=== PATIENT | male | born 1955 | race African-American/Black ===

== ENCOUNTER 2016-10-26 18:56 | Inpatient (IN) | payer OTHER, MEDICAID ==
[~2016-10-26] VITALS: Ht 172.7 cm; Wt 85.7 kg
[~2016-10-26 18:56] MED LIST: ALPOS OU; COLACE100 MG PO; COSOPT OCUMETER10 ML OU; ELIQUIS5 MG PO; FENOFIBRATE160 M1 PO; FINASTERIDE5 M1 PO; FLO4 PO; LIPI20 PO; METFORMIN ER500 M1 PO; NAPROXEN SODIU500 MG PO; NOR10T PO; NORCO1 TA2 PO; TRAVATAN Z5 ML OU
[2016-10-26 20:39] LABS: BASOPHIL % 0.4 % (0-2); PLATELET COUNT 199 x10^3mcL (130-400)
[2016-10-26 20:40] LABS: RED CELL DISTRIBUTION WIDTH 18.1 % (11.5-14.5)
[2016-10-26 20:49] LABS: CALCIUM 8.6 mg/dL (8.5-10.1); CARBON DIOXIDE 22.6 mmol/L (21-32); CREATININE SERUM 1.5 mg/dL (0.7-1.3); POTASSIUM SERUM 3.9 mmol/L (3.5-5.1)
[2016-10-26 20:53] LABS: ALBUMIN 3.4 g/dL (3.4-5.0); BILIRUBIN TOTAL 0.44 mg/dL (0.20-1.00); TOTAL PROTEIN, SERUM 7.1 g/dL (6.4-8.2)
[2016-10-26 22:06] LABS: UA SPECIFIC GRAVITY >=1.030 (1.005-1.035); microscopic required? YES; urine erythrocyte NEGATIVE (NEGATIVE)
[2016-10-26 22:16] LABS: AMPHETAMINE QUAL UR NONE DETECTED (NEG <=1000)
[2016-10-26 22:39] VITALS: BP 114/73
[2016-10-26 22:45] VITALS: Ht 172.7 cm; Wt 85.7 kg
[2016-10-26 23:13] LABS: RED BLOOD CELLS 4.28 M/mm3 (4.52-5.90)
[2016-10-26 23:16] LABS: FREE T4 0.95 ng/dL (0.76-1.46); FREE THYROXINE INDEX 2.6 ug/dL (1.4-4.5); T4(THYROXINE) 7.2 ug/dL (4.7-13.3)
[2016-10-26 23:21] LABS: TOTAL IRON BINDING CAPACITY 410 ug/dL (250-450)
[2016-10-26 23:22] LABS: IRON 31 ug/dL (65-170)
[2016-10-26 23:46] LABS: CHOLESTEROL/HDL RATIO 4.7
[2016-10-27 05:29] VITALS: BP 107/55
[2016-10-27 06:16] LABS: CHLORIDE SERUM 111 mmol/L (98-107); CREATININE SERUM 1.2 mg/dL (0.7-1.3); GFR1 > 60 mL/min; GLUCOSE SERUM 152 mg/dL (74-106); MAGNESIUM 2.1 mg/dL (1.8-2.4); PHOSPHOROUS 3.1 mg/dL (2.5-4.9); POTASSIUM SERUM 5.1 mmol/L (3.5-5.1); SODIUM SERUM 143 mmol/L (136-145)
[2016-10-27 07:16] LABS: BASOPHIL % 0.5 % (0-2); PLATELET COUNT 176 x10^3mcL (130-400)
[2016-10-27 07:21] LABS: RED CELL DISTRIBUTION WIDTH 18.6 % (11.5-14.5)
[2016-10-27 09:36] VITALS: BP 110/61
[2016-10-27 10:40] VITALS: BP 132/71
[2016-10-27 13:19] LABS: T3 TOTAL 1.02 ng/mL
[2016-10-27 13:56] VITALS: BP 112/54
[2016-10-27 16:55] VITALS: BP 110/66
[2016-10-27 21:42] VITALS: BP 102/63
[2016-10-28 06:03] VITALS: BP 104/53
[2016-10-28 06:31] LABS: CALCIUM 8.5 mg/dL (8.5-10.1); CARBON DIOXIDE 24.2 mmol/L (21-32); CHLORIDE SERUM 107 mmol/L (98-107); CREATININE SERUM 1.1 mg/dL (0.7-1.3); GFR1 > 60 mL/min; GLUCOSE SERUM 96 mg/dL (74-106); SODIUM SERUM 140 mmol/L (136-145)
[2016-10-28 06:48] LABS: BASOPHIL % 0.7 % (0-2); PLATELET COUNT 186 x10^3mcL (130-400)
[2016-10-28 06:56] LABS: RED CELL DISTRIBUTION WIDTH 18.6 % (11.5-14.5)
[2016-10-28 06:57] LABS: rbc morphology (normal/abnorm) ABNORMAL (NORMAL)
[2016-10-28 10:07] VITALS: BP 105/67
[2016-10-28 11:15] VITALS: BP 105/67
[2016-10-28 15:04] VITALS: BP 122/64
[2016-10-28 17:45] VITALS: BP 114/69
[2016-10-28 22:03] VITALS: BP 127/73
[2016-10-29 06:14] VITALS: BP 119/68
[2016-10-29 08:43] VITALS: BP 119/68
== END 2016-10-29 10:50 | disposition home or self-care (01) | DRG 205 ==
LOC: ED 18:56 → DU 21:13
PROVIDERS: Emergency Medicine; ADMIT Student in an Organized Health Care Education/Training Program
DX: M94.0 Chondrocostal junction syndrome [Tietze] (principal); N17.0 Acute kidney failure with tubular necrosis; N39.0 Urinary tract infection, site not specified; D68.69 Other thrombophilia; E11.59 Type 2 diabetes mellitus with other circulatory complications; E11.65 Type 2 diabetes mellitus with hyperglycemia; D50.9 Iron deficiency anemia, unspecified; E78.5 Hyperlipidemia, unspecified; Z68.28 Body mass index [BMI] 28.0-28.9, adult; Z79.84 Long term (current) use of oral hypoglycemic drugs
CPT/HCPCS: 82962; 83880; 84439; J0696; J2270; J2916; J7030; Q0092

== ENCOUNTER 2016-12-17 06:43 | Inpatient (IN) | payer OTHER, MEDICAID ==
[~2016-12-17] VITALS: Ht 172.7 cm; Wt 86.6 kg
--- NOTE | 2016-12-17 06:54 | NUR ---
RECEIVED PT FROM TRIAGE FOR C/C OF CHEST PAIN X30 MINS. PT STATES THAT HE HAS A PRESSURE TYPE PAIN IN HIS CHEST THAT RADIATES TO HIS LT ARM. 7/10 PAIN. PT IS A/O X4, SPEECH IS CLEAR AND FOLLOWS COMMANDS. CHEST RISE AND FALL EQUAL AND UNLABORED. PT PLACED ON BOTTOM MAN AND VS STABLE. PT ALSO C/O DIZZINESS AND DIARRHEA. PT HAS A SCAR ON MID STERM FROM PAST SURGERY FOR PE. WILL CONTINUE TO MONITOR.
--- NOTE | 2016-12-17 06:58 | NUR ---
DR MORRISON AT BEDSIDE FOR ASSESSMENT.
--- NOTE | 2016-12-17 07:06 | NUR ---
RECEIVED REPORT FROM [facility], WILL ASSUME CARE PRIMARY NURSE.
--- NOTE | 2016-12-17 07:07 | NUR ---
REPORT GIVEN TO CLAUDY GARCIA AND ELEAZAR. ALL QUESTIONS AND CONCERNS ADDRESSED.
[2016-12-17 07:21] LABS: BASOPHIL % 0.5 % (0-2); PLATELET COUNT 150 x10^3mcL (130-400)
[2016-12-17 07:24] LABS: RED CELL DISTRIBUTION WIDTH 20.7 % (11.5-14.5)
--- NOTE | 2016-12-17 07:37 | NUR ---
PT REPORTS HAVING SHARP CHEST PAIN AT THIS TIME, PAIN LEVEL 8/10. NOTIFIED DR. MORRISON.
[2016-12-17 07:50] LABS: CALCIUM 8.1 mg/dL (8.5-10.1); CARBON DIOXIDE 22.2 mmol/L (21-32); CHLORIDE SERUM 109 mmol/L (98-107); CREATININE SERUM 1.2 mg/dL (0.7-1.3); GFR1 > 60 mL/min; GLUCOSE SERUM 198 mg/dL (74-106); POTASSIUM SERUM 3.7 mmol/L (3.5-5.1); SODIUM SERUM 142 mmol/L (136-145)
[2016-12-17 07:54] LABS: ALKALINE PHOSPHATASE 65 U/L (46-116); ALT/SGPT 47 U/L (16-63); AST/SGOT 30 U/L (15-37); BILIRUBIN TOTAL 0.29 mg/dL (0.20-1.00); TOTAL PROTEIN, SERUM 6.8 g/dL (6.4-8.2)
[2016-12-17 07:55] LABS: ALBUMIN 3.2 g/dL (3.4-5.0)
[2016-12-17 08:31] LABS: rbc morphology (normal/abnorm) ABNORMAL (NORMAL); tear drop cell (dacryocyte) 1+
--- NOTE | 2016-12-17 08:32 | NUR ---
PT RESTING, PT IN NO ACUTE DISTRESS.
--- NOTE | 2016-12-17 09:04 | NUR ---
PT RESTING. PT REPORTS PAIN HAS DECREASED A LITTLE, PAIN LEVEL 7/10.
[2016-12-17 09:37] LABS: MAGNESIUM 2.2 mg/dL (1.8-2.4)
--- NOTE | 2016-12-17 09:48 | NUR ---
PT RESTING, REPORTS A PAIN LEVEL 4/10. PT IN NO ACUTE DISTRESS.
[2016-12-17 09:50] LABS: T3 TOTAL 0.94 ng/mL
--- NOTE | 2016-12-17 10:10 | NUR ---
GAVE REPORT TO [facility] ON TELE UNIT TO ASSUME CARE.
[2016-12-17 10:21] LABS: FREE T4 1.01 ng/dL (0.76-1.46)
[2016-12-17 10:22] LABS: FREE THYROXINE INDEX 2.4 ug/dL (1.4-4.5); T4(THYROXINE) 6.2 ug/dL (4.7-13.3)
--- NOTE | 2016-12-17 10:30 | NUR ---
RECEIVED PT FROM ER BY KEE WITH ER NURSE AT BED SIDE. PT STATED FEELING DIZZINESS AND MILLER 4/10. PT IS ABLE TO WALK WITH STEADY GAIT. PT STATED FEELING SOB WHILE AMBULATING. PT'S VS CHECK: BP 124/73, HR 62 BPM, O2 SAT 99% ON RA. TEMP 97.3. PT BREATHING ON RA, EVEN, UNLABORED. IV ON LW. WILL START IVF PER ORDER.
[2016-12-17 13:38] VITALS: BP 124/73
--- NOTE | 2016-12-17 15:00 | NUR ---
INSERT NEW IV ON RFA, AND RESUME IVF PER ORDER. PT IS RESTING, NO COMPLAIN OF PAIN. WILL CONTINUE TO MONITOR.
[2016-12-17 17:10] VITALS: BP 90/51
--- NOTE | 2016-12-17 18:02 | NUR ---
PT IS RESTING BUT EASILY AROUSABLE. PT NO COMPLAIN OF CHEST PAIN AT THIS TIME. PT BREATHING ON RA, EVEN, UNLABORED. IV SITE PATENT, INTACT. IVF INFUSING WELL.
--- NOTE | 2016-12-17 19:20 | NUR ---
PATIENT RECEIVED AWAKE, ALERT, AND ORIENTED X4. NO DISTRESS NOTED. PATIENT C/O 5/10 CHEST PRESSURE. WILL MEDICATE PER DOCTOR'S PRN ORDER. IV SITE TO RIGHT FOREARM, PATENT AND INTACT. IV FLUID INFUSING PER DOCTOR'S ORDER. BED IN LOWEST POSITION. CALL LIGHT WITHIN REACH. WILL CONTINUE TO MONITOR.
[2016-12-17 21:05] VITALS: BP 109/63
[2016-12-17 22:33] LABS: AMPHETAMINE QUAL UR NONE DETECTED (NEG <=1000)
[2016-12-17 23:15] LABS: UA SPECIFIC GRAVITY 1.025 (1.005-1.035); microscopic required? YES
[2016-12-17 23:16] LABS: urine erythrocyte NEGATIVE (NEGATIVE)
--- NOTE | 2016-12-18 04:59 | NUR ---
PATIENT RESTED THROUGHOUT THE NIGHT. NO DISTRESS NOTED. NO C/O HEADACHE THROUGHOUT THE NIGHT. ALL NEEDS MET. SAFETY AND COMFORT MEASURES MAINTAINED. BED IN LOWEST POSITION. CALL LIGHT WITHIN REACH. WILL CONTINUE TO MONITOR AND ENDORSE TO NEXT SHIFT NURSE.
[2016-12-18 05:27] VITALS: BP 127/62
--- NOTE | 2016-12-18 05:29 | NUR ---
PER PATIENT, PATIENT VOMITS WHEN TAKING NORCO. NOTIFIED DR QUINTANA.
[2016-12-18 05:48] LABS: CALCIUM 8.5 mg/dL (8.5-10.1); CARBON DIOXIDE 23.7 mmol/L (21-32); CHLORIDE SERUM 107 mmol/L (98-107); CREATININE SERUM 1.1 mg/dL (0.7-1.3); GFR1 > 60 mL/min; GLUCOSE SERUM 160 mg/dL (74-106); PHOSPHOROUS 3.6 mg/dL (2.5-4.9); POTASSIUM SERUM 3.7 mmol/L (3.5-5.1); SODIUM SERUM 139 mmol/L (136-145)
[2016-12-18 05:55] LABS: BASOPHIL % 0.4 % (0-2); PLATELET COUNT 147 x10^3mcL (130-400)
--- NOTE | 2016-12-18 08:00 | NUR ---
ALERT/ORIENTED X4; TELE#3= SR; HR = 70; C/O CHEST PAIN. BUT NO S/S OF PAIN. PATIENT WAS PLAYING CELL PHONE. NO RESP DISTRESS ON RA. FINISHED 100% OF BREAKFAST. GOOD APPETITE. AMBULATORY. PATIENT REFUSED IVF. IVHL'D TO RFA. IV PATENT. ON ELIQUIS. REFUSED SCD. PATIENT DEMENDING, NOT CO-OP TO CARE AT TIME. CALL LIGHT IN REACH.
[2016-12-18 08:47] VITALS: BP 129/71
--- NOTE | 2016-12-18 08:55 | NUR ---
DR. RIZZO AND MEDICAL TEAM MADE MORNING ROUND. PLAN OF CARE DISCUSSED WITH PATIENT, INCLUDED WITH SHOPPER INSIGHTS MANAGER, DR. LOPES CONSULTATION. PATIENT AGREED WITH PLAN OF CARE.
--- NOTE | 2016-12-18 12:19 | NUR ---
C/O CHEST PAIN ON 10/21. ASKED MORPHINE 2MG IVP. REFUSED NORCO. HE SAID NORCO MADE HIM NAUSEA. MORPHINE 2MG IVP GIVEN.
[2016-12-18 12:20] VITALS: BP 130/67
--- NOTE | 2016-12-18 14:23 | NUR ---
PATIENT HAS SOUND SLEEPING NOW.
--- NOTE | 2016-12-18 17:10 | NUR ---
PATIENT C/O CHEST PAIN ON 10/21; HE WANTED MORPHINE WITH ANTI-EMESIS MEDS. HE ALSO ASKED SANDWITH TOGETHER. PATIENT DIDN'T HAVE S/S OF CHEST PAIN AND NAUSEA/VOMITING. I ASKED HIM," YOU HAVE FEELING OF HUNGRY, OR FEELING OF NAUSEA?". HE SAID," I WANT ANTI-EMESIS MEDS WITH MORPHINE TO PREVENT NAUSEA". I TOLD HIM, " I WILL HOLD YOUR EXTRA SANWITH TO PREVENT YOUR VOMITING. IF YOU HAVE NAUSEA, I WILL GIVE YOU ZOFRAN AND HOLD YOUR DINNER". 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 MORPHINE 2MG IVP GIVEN PER ORDER. REPORTED TO DION GAN NURSE.
--- NOTE | 2016-12-18 19:36 | NUR ---
RECEIVED PATIENT AWAKE, ALERT AND ORIENTED DENIES CHEST DISCOMFORT THIS TIME. BREATHING EASY AND NONLABORED SATTING AT 100% RA. TELE MONITOR DISCONTINUED TRANFERRED TO MED SURG PATIENT. IV TO RFA INFUSING WELL WITH NO SIGN OF INFIL;TRATION NOTED. WILL CONTINUE TO MONITOR. CALL LIGHT WITHIN REACH.
--- NOTE | 2016-12-18 20:48 | NUR ---
C/O CHESTPAIN MEDICATED WITH MORPHINE 2MG IVP PRESCRIBED. WILL CONTINUE TO MONITOR.
[2016-12-18 21:09] VITALS: BP 112/61
--- NOTE | 2016-12-18 21:10 | NUR ---
PATIENT SUDDENLY WANTED TO CHANGE NURSE WITHOUT ANY REASON AND CALLED WEAVE DEFECT CHARTING CLERK TO REQUEST ANOTHER NURSE.
--- NOTE | 2016-12-18 21:22 | NUR ---
TOOK OVER PT CARE FROM [facility]; PT IS ALERT/ORIENTED X4. PT STATES CP IS DECREASING NOW A 5/10 ON THE PAIN SCALE. PT WAS MEDICATED FOR CP BY [facility] (SEE EMAR). WILL CONTINUE TO MONITOR.
--- NOTE | 2016-12-18 21:53 | NUR ---
PATIENT CARE TRANSFERRED TO [facility], REPORT GIVEN.
--- NOTE | 2016-12-18 22:30 | NUR ---
PT TAKEN OFF TELE MONITOR PER MD ORDER
--- NOTE | 2016-12-18 23:55 | NUR ---
PER DAHIANA HENRY RN, THE BILINGUAL CUSTOMER SERVICE MOHAMUD PHONED AND STATED THE PT CALLED HER AND WAS CONCERNED ABOUT THE TELE MONITOR BEING OFF. PT STATED HE GETS OCCASIONAL PALPATATIONS BUT IS NOT HAVING ANY NOW. PT STATED HE GETS PALPATATIONS "ABOUT 2:00 AM". PT WAS INFORMED THAT HIS LABS WERE WITHIN NORMAL LIMITS. I SPOKE WITH DR QUINTANA AND INFORMED HIM OF THE ABOVE, DR QUINTANA STATED HE WILL COME AND SPEAK TO THE PT. WILL CONTINUE TO MONITOR.
--- NOTE | 2016-12-19 02:30 | NUR ---
PT SLEEPING. NO DISTRESS NOTED. WILL CONTINUE TO MONITOR.
--- NOTE | 2016-12-19 04:10 | NUR ---
PT SLEEPING. NO DISTRESS NOTED. WILL CONTINUE TO MONITOR.
--- NOTE | 2016-12-19 05:01 | NUR ---
PT SLEPT IN LONG INTERVALS THROUGHOUT THE NIGHT. NO DISTRESS NOTED. WILL CONTINUE TO MONITOR.
--- NOTE | 2016-12-19 06:31 | NUR ---
PT REFUSES BLOOD DRAW AND VS AT THIS TIME. DR QUINTANA MADE AWARE THROUGH [place].
--- NOTE | 2016-12-19 07:50 | NUR ---
RECEIVED PATIENT SITTING UP IN BED A/O X4, CLEAR SPEECH, NO NEURO DEFICITS NOTED. MED-SURG PATIENT, C/O PRESSURE LIKE CHEST PAIN /10 TOLERABLE AT THIS TIME. BREATHING EVEN UNLABBORED ON RA, DENIES SOB, NO DISTRESS NOTED. SKIN IS WARM CDI WITH IV H/L TO RFA INTACT AND PATENT. PATIENT CALM AND COOPERATIVE WITH CARE, INSTRUCTED TO CALL FOR ASSISTANCE IF NEEDED. CALL LIGHT WITHIN REACH, BED IN LOW POSITION. WILL MONITOR.
--- NOTE | 2016-12-19 08:26 | NUR ---
PATIENT C/O PRESSURE LIKE CHEST PAIN 10/21, MORPHINE 2 MG IVP Q3H PRN GIVEN AT THIS TIME FOR PAIN PER MD ORDER. ALL NEEDS ATTENDED TO. WILL MONITOR.
[2016-12-19 08:32] LABS: BASOPHIL % 0.4 % (0-2); PLATELET COUNT 169 x10^3mcL (130-400)
[2016-12-19 08:33] LABS: RED CELL DISTRIBUTION WIDTH 20.8 % (11.5-14.5)
--- NOTE | 2016-12-19 09:14 | NUR ---
ROUNDS MADE- DR. RIZZO, RESIDENT TEAM, CHARGE NURSE AND PRIMARY NURSE AT BEDSIDE. POC REVIEWED WITH PATIENT- PATIENT ADDRESSED CONCERNED WITH HX OF IRREGULAR HEARTBEAT. PATIENT WILL STAY ANOTHER NIGHT TO CONTINUE MONITORING PATIENT- WILL PLACE PATIENT ON TELE MONITOR. ALL QUESTIONS AND CONCERNS ADDRESSED. WILL MONITOR.
[2016-12-19 09:49] VITALS: BP 110/71
--- NOTE | 2016-12-19 10:07 | NUR ---
PATIENT PLACED BACK ON TELEMETRY, TELE # 36 APPLIED PER MD ORDER.
[2016-12-19 10:19] LABS: ovalocyte/elliptocyte 1+; rbc morphology (normal/abnorm) ABNORMAL (NORMAL); tear drop cell (dacryocyte) 1+
--- NOTE | 2016-12-19 14:00 | NUR ---
PATIENT RESTING IN BED COMFORTABLY, NO DISTRESS NOTED. SAFETY PRECAUTIONS MAINTAINED. WILL MONITOR.
[2016-12-19 16:03] LABS: SODIUM SERUM 136 mmol/L (136-145)
[2016-12-19 16:19] LABS: CALCIUM 8.9 mg/dL (8.5-10.1); CHLORIDE SERUM 104 mmol/L (98-107); CREATININE SERUM 1.1 mg/dL (0.7-1.3); GFR1 > 60 mL/min
[2016-12-19 16:23] LABS: CARBON DIOXIDE 28.4 mmol/L (21-32); GLUCOSE SERUM 98 mg/dL (74-106)
--- NOTE | 2016-12-19 16:45 | NUR ---
DR. LOPES AT BEDSIDE TO SPEAK WITH PATIENT. PATIENT C/O LEFT SIDED CHEST PAIN (PRESSURE) AND LOWER BACK PAIN 6/, WILL MEDICATE PRN FOR PAIN WITH MORPHINE PER MD ORDER (SEE eMAR).
[2016-12-19 17:24] VITALS: BP 118/64
--- NOTE | 2016-12-19 18:44 | NUR ---
PATIENT RESTING IN BED COMFORTABLY, NO DISTRESS NOTED. PATIENT IS CALM AND COOPERATIVE WITH CARE, PLEASENT PATIENT. IV TO RFA REMAINS H/L INTACT AND PATIENT. ALL NEEDS ATTENDED TO DURING SHIFT. SAFETY PREACUTIONS MAINTAINED. WILL ENDORSE CARE TO ONCOMING NURSE.
--- NOTE | 2016-12-19 19:46 | NUR ---
Awake and verbally responsive. No resp.distress noted on room air. Denies chest pain or any discomfort. Normal sinus rhythm. Will cont.to monitor. Call light within reach.
[2016-12-19 20:50] VITALS: BP 125/70
--- NOTE | 2016-12-20 04:14 | NUR ---
No significant change in condition noted. Afebrile. Denies chest pain or any discomfort. Pain controlled. In no apparent distress.
[2016-12-20 05:50] VITALS: BP 98/52
--- NOTE | 2016-12-20 07:45 | NUR ---
ALERT AND ORIENTED. BREATHNG FREELY ON RA. TELE # 36 NSR. SL TO RT FA. CHEST PAIN 06/21. DENIES NEED FOR PAIN MED. INDEPENDENT W ADL'S. TAKING ELOQUIS FOR HX CAD. NO PROBLEMS COMMUNICATING. BRP. CALL LIGHT WITHIN REACH.
[2016-12-20] MEDS ORDERED: METOPROLOL TART25 M1 PO (09:01)
[2016-12-20] MEDS ORDERED: MAC100 PO (09:01)
[2016-12-20 10:15] VITALS: BP 106/68
--- NOTE | 2016-12-20 10:20 | NUR ---
IV INFILTRATED. HAN'Faith MARTÍNEZ. REMOVED TELE # 36 AND RETURNED TO TELE STATION. PT WILL BE GOING [facility] TODAY.
[2016-12-20] MEDS ORDERED: ELIQUIS5 MG PO (12:11)
[2016-12-20] MEDS ORDERED: METFORMIN ER500 M1 PO (12:12)
[2016-12-20] MEDS ORDERED: DUL5 PO (12:13)
[2016-12-20] MEDS ORDERED: NOR10T PO (12:14)
[2016-12-20 12:18] VITALS: BP 106/68
--- NOTE | 2016-12-20 12:57 | NUR ---
PT TO BE DC'D. WAITING FOR POSSIBLE CAB VOUCHER. F/U SHARON GIVEN WITH PCP IN [place]. RECEIVED RX FOR NORCO. OTHER PRESCRIPTIONS ESCRIPTED TO PTS PHARMACY. ALL DC INSTRUCTIONS REVIEWED WITH AND SIGNED BY PT.
[2016-12-20 13:05] VITALS: BP 118/67
== END 2016-12-20 13:12 | disposition home or self-care (01) | DRG 206 ==
LOC: ED 06:43 → DU 09:43 → MU 12-18 23:11 → DU 12-19 10:08
PROVIDERS: Emergency Medicine; ADMIT Family Medicine
DX: M94.0 Chondrocostal junction syndrome [Tietze] (principal); E44.1 Mild protein-calorie malnutrition; I42.2 Other hypertrophic cardiomyopathy; D68.69 Other thrombophilia; N39.0 Urinary tract infection, site not specified; E11.65 Type 2 diabetes mellitus with hyperglycemia; I25.10 Atherosclerotic heart disease of native coronary artery without angina pectoris; N40.0 Benign prostatic hyperplasia without lower urinary tract symptoms; Z76.5 Malingerer [conscious simulation]; H40.9 Unspecified glaucoma; D64.9 Anemia, unspecified; E78.5 Hyperlipidemia, unspecified; Z68.29 Body mass index [BMI] 29.0-29.9, adult; Z86.711 Personal history of pulmonary embolism; Z79.01 Long term (current) use of anticoagulants
CPT/HCPCS: 82962; 83880; 84439; 85378; J0696; J2270; J2550; J3010; J7030; Q0092

== ENCOUNTER 2017-05-08 18:48 | Inpatient (IN) | payer OTHER, MEDICAID ==
[~2017-05-08] VITALS: Ht 172.7 cm; Wt 90.0 kg
[~2017-05-08 18:48] MED LIST changes: +DUL5 PO; +MAC100 PO; +METOPROLOL TART25 M1 PO
[2017-05-08 19:44] LABS: BASOPHIL % 0.4 % (0-2); PLATELET COUNT 170 x10^3mcL (130-400)
[2017-05-08 19:53] LABS: RED CELL DISTRIBUTION WIDTH 17.4 % (11.5-14.5)
[2017-05-08 20:14] LABS: CALCIUM 9.4 mg/dL (8.5-10.1); CARBON DIOXIDE 26.1 mmol/L (21-32); CHLORIDE SERUM 104 mmol/L (98-107); CREATININE SERUM 1.2 mg/dL (0.7-1.3); GFR1 > 60 mL/min; GLUCOSE SERUM 91 mg/dL (74-106); POTASSIUM SERUM 4.5 mmol/L (3.5-5.1); SODIUM SERUM 140 mmol/L (136-145)
[2017-05-08 20:19] LABS: ALBUMIN 3.9 g/dL (3.4-5.0); ALKALINE PHOSPHATASE 64 U/L (46-116); ALT/SGPT 20 U/L (16-63); AST/SGOT 15 U/L (15-37); BILIRUBIN TOTAL 0.5 mg/dL (0.20-1.00); TOTAL PROTEIN, SERUM 7.6 g/dL (6.4-8.2)
[2017-05-08 21:33] LABS: CHOLESTEROL/HDL RATIO 3.4; MAGNESIUM 2.1 mg/dL (1.8-2.4); PHOSPHOROUS 3.7 mg/dL (2.5-4.9)
[2017-05-08 21:41] LABS: FREE T4 1.23 ng/dL (0.76-1.46); FREE THYROXINE INDEX 2.9 ug/dL (1.4-4.5)
[2017-05-08] MEDS ORDERED: FLO4 PO (21:53)
[2017-05-08 21:59] LABS: microscopic required? YES; urine erythrocyte NEGATIVE (NEGATIVE)
[2017-05-08 22:10] LABS: AMPHETAMINE QUAL UR NONE DETECTED (NEG <=1000)
[2017-05-08 22:44] VITALS: BP 132/69
[2017-05-09 03:54] LABS: BASOPHIL % 0.3 % (0-2); PLATELET COUNT 152 x10^3mcL (130-400)
[2017-05-09 03:58] LABS: RED CELL DISTRIBUTION WIDTH 17.9 % (11.5-14.5)
[2017-05-09 04:21] LABS: CALCIUM 8.3 mg/dL (8.5-10.1); CARBON DIOXIDE 26.1 mmol/L (21-32); CHLORIDE SERUM 106 mmol/L (98-107); CREATININE SERUM 1.1 mg/dL (0.7-1.3); GFR1 > 60 mL/min; GLUCOSE SERUM 159 mg/dL (74-106); MAGNESIUM 2.1 mg/dL (1.8-2.4); PHOSPHOROUS 2.8 mg/dL (2.5-4.9); POTASSIUM SERUM 3.6 mmol/L (3.5-5.1); SODIUM SERUM 140 mmol/L (136-145)
[2017-05-09 06:19] VITALS: BP 132/76
[2017-05-09 09:15] VITALS: BP 110/59
[2017-05-09 13:33] VITALS: BP 120/67
[2017-05-09 17:13] VITALS: BP 125/59
[2017-05-09 19:05] VITALS: Ht 172.7 cm; Wt 90.0 kg
[2017-05-09 20:45] VITALS: BP 99/62
[2017-05-10 05:38] VITALS: BP 103/63
[2017-05-10 07:00] LABS: BASOPHIL % 0.2 % (0-2); PLATELET COUNT 142 x10^3mcL (130-400)
[2017-05-10 07:11] LABS: RED CELL DISTRIBUTION WIDTH 18.3 % (11.5-14.5)
[2017-05-10 07:26] LABS: CALCIUM 9.2 mg/dL (8.5-10.1); CARBON DIOXIDE 23.1 mmol/L (21-32); CHLORIDE SERUM 106 mmol/L (98-107); CREATININE SERUM 1.2 mg/dL (0.7-1.3); GFR1 > 60 mL/min; GLUCOSE SERUM 120 mg/dL (74-106); POTASSIUM SERUM 4.6 mmol/L (3.5-5.1); SODIUM SERUM 141 mmol/L (136-145)
[2017-05-10 08:25] VITALS: BP 114/63
[2017-05-10 12:19] VITALS: BP 133/70
[2017-05-10 16:42] VITALS: BP 118/67
[2017-05-10] MEDS ORDERED: LOT5 PO (16:52)
[2017-05-10] MEDS ORDERED: NIT0.4 SL (17:11)
[2017-05-10 21:07] VITALS: BP 125/73
[2017-05-11 05:21] VITALS: BP 116/70
[2017-05-11 09:42] VITALS: BP 125/73
[2017-05-11 18:14] VITALS: BP 129/88
[2017-05-11 20:10] VITALS: BP 100/69; BP 131/76
[2017-05-12 04:54] VITALS: BP 124/71
[2017-05-12 08:54] VITALS: BP 130/68
[2017-05-12 09:27] VITALS: BP 130/68
[2017-05-12] MEDS ORDERED: NIT0.4 SL (10:03)
[2017-05-12] MEDS ORDERED: ELIQUIS5 MG PO (10:03)
[2017-05-12] MEDS ORDERED: METFORMIN ER500 M1 PO (10:03)
[2017-05-12] MEDS ORDERED: LOT5 PO (10:03)
[2017-05-12 10:07] VITALS: BP 130/68
== END 2017-05-12 10:30 | disposition home or self-care (01) | DRG 206 ==
LOC: ED 18:48 → DU 21:09
PROVIDERS: Family Medicine
DX: M94.0 Chondrocostal junction syndrome [Tietze] (principal); N39.0 Urinary tract infection, site not specified; I11.9 Hypertensive heart disease without heart failure; E11.65 Type 2 diabetes mellitus with hyperglycemia; N40.0 Benign prostatic hyperplasia without lower urinary tract symptoms; H40.9 Unspecified glaucoma; Z68.30 Body mass index [BMI] 30.0-30.9, adult; Z86.711 Personal history of pulmonary embolism; Z95.828 Presence of other vascular implants and grafts; Z79.84 Long term (current) use of oral hypoglycemic drugs; Z79.01 Long term (current) use of anticoagulants
CPT/HCPCS: 82962; 83880; 84439; 94150; J0696; J1885; J2270; J2405; J7030; J7620; Q0092

== ENCOUNTER 2017-08-21 17:44 | Inpatient (IN) | payer OTHER, MEDICAID ==
[~2017-08-21] VITALS: Ht 177.8 cm; Wt 85.0 kg
[~2017-08-21 17:44] MED LIST changes: -ALPOS OU; +LOT5 PO; +NIT0.4 SL
[2017-08-21 17:50] VITALS: Ht 177.8 cm; Wt 85.0 kg
[2017-08-21 18:47] LABS: BASOPHIL % 0.7 % (0-2); PLATELET COUNT 181 x10^3mcL (130-400)
[2017-08-21 18:51] LABS: RED CELL DISTRIBUTION WIDTH 15.5 % (11.5-14.5)
[2017-08-21 18:57] LABS: CALCIUM 8.9 mg/dL (8.5-10.1); CARBON DIOXIDE 25.8 mmol/L (21-32); CHLORIDE SERUM 107 mmol/L (98-107); CREATININE SERUM 1.2 mg/dL (0.7-1.3); GFR1 > 60 mL/min; GLUCOSE SERUM 116 mg/dL (74-106); POTASSIUM SERUM 3.9 mmol/L (3.5-5.1); SODIUM SERUM 141 mmol/L (136-145)
[2017-08-21 19:02] LABS: ALBUMIN 3.5 g/dL (3.4-5.0); ALKALINE PHOSPHATASE 72 U/L (46-116); AST/SGOT 12 U/L (15-37); BILIRUBIN TOTAL 0.35 mg/dL (0.20-1.00); TOTAL PROTEIN, SERUM 6.9 g/dL (6.4-8.2)
[2017-08-21 19:14] LABS: ALT/SGPT 18 U/L (16-63)
[2017-08-21] MEDS ORDERED: FINASTERIDE5 M1 (20:19)
[2017-08-21 20:35] LABS: MAGNESIUM 2.1 mg/dL (1.8-2.4); PHOSPHOROUS 3.7 mg/dL (2.5-4.9)
[2017-08-21 20:36] LABS: CHOLESTEROL/HDL RATIO 4.8
[2017-08-21 20:40] VITALS: BP 126/79
[2017-08-21 20:44] LABS: T3 TOTAL 0.83 ng/mL
[2017-08-21 20:46] LABS: FREE T4 0.91 ng/dL (0.76-1.46); FREE THYROXINE INDEX 2.7 ug/dL (1.4-4.5); T4(THYROXINE) 7.3 ug/dL (4.7-13.3)
[2017-08-21 20:51] LABS: microscopic required? YES; urine erythrocyte NEGATIVE (NEGATIVE)
[2017-08-21 21:03] LABS: AMPHETAMINE QUAL UR NONE DETECTED (NEG <=1000)
[2017-08-22 04:12] LABS: BASOPHIL % 0.4 % (0-2); PLATELET COUNT 174 x10^3mcL (130-400)
[2017-08-22 04:13] LABS: RED CELL DISTRIBUTION WIDTH 15.4 % (11.5-14.5)
[2017-08-22 04:22] LABS: CALCIUM 8.6 mg/dL (8.5-10.1); CHLORIDE SERUM 108 mmol/L (98-107); GFR1 > 60 mL/min; GLUCOSE SERUM 127 mg/dL (74-106); POTASSIUM SERUM 3.9 mmol/L (3.5-5.1); SODIUM SERUM 141 mmol/L (136-145)
[2017-08-22 05:20] VITALS: BP 114/54
[2017-08-22 09:34] VITALS: BP 109/56
[2017-08-22 12:51] VITALS: BP 124/64
[2017-08-22 17:41] VITALS: BP 124/73
[2017-08-22 21:10] VITALS: BP 114/68
[2017-08-23 10:25] VITALS: BP 119/66
[2017-08-23 12:54] VITALS: BP 114/68
[2017-08-23] MEDS ORDERED: LAC PO (13:00)
[2017-08-23] MEDS ORDERED: LEVAQUIN750 MG PO (13:01)
[2017-08-23 15:17] LABS: BASOPHIL % 0.4 % (0-2); PLATELET COUNT 180 x10^3mcL (130-400)
[2017-08-23 15:24] LABS: RED CELL DISTRIBUTION WIDTH 15.7 % (11.5-14.5)
[2017-08-23 15:30] LABS: CALCIUM 8.7 mg/dL (8.5-10.1); CARBON DIOXIDE 25.4 mmol/L (21-32); CHOLESTEROL/HDL RATIO 3.8; CREATININE SERUM 1.3 mg/dL (0.7-1.3); PHOSPHOROUS 3.8 mg/dL (2.5-4.9); POTASSIUM SERUM 4.2 mmol/L (3.5-5.1)
[2017-08-23] MEDS ORDERED: FLO4 PO (16:26)
[2017-08-23] MEDS ORDERED: ALPOS OU (16:26)
[2017-08-23] MEDS ORDERED: ZES5 PO (16:27)
[2017-08-23 17:28] VITALS: BP 124/70
[2017-08-23 21:17] VITALS: BP 110/57
[2017-08-24 06:02] VITALS: BP 103/61
[2017-08-24 08:24] VITALS: BP 116/74
[2017-08-24 17:32] VITALS: BP 120/74
[2017-08-24 20:40] VITALS: BP 119/65
[2017-08-25 05:30] VITALS: BP 116/69
[2017-08-25 08:45] VITALS: BP 123/70
[2017-08-25 10:56] VITALS: BP 123/70
== END 2017-08-25 12:37 | disposition home or self-care (01) | DRG 205 ==
LOC: ED 17:44 → DU 20:01 → MU 20:01 → DU 20:30 → MU 08-23 09:17
PROVIDERS: Emergency Medicine; Family Medicine
DX: M94.0 Chondrocostal junction syndrome [Tietze] (principal); N17.0 Acute kidney failure with tubular necrosis; N39.0 Urinary tract infection, site not specified; E11.9 Type 2 diabetes mellitus without complications; E11.65 Type 2 diabetes mellitus with hyperglycemia; E78.00 Pure hypercholesterolemia, unspecified; N40.0 Benign prostatic hyperplasia without lower urinary tract symptoms; E78.1 Pure hyperglyceridemia; H40.9 Unspecified glaucoma; D64.9 Anemia, unspecified
CPT/HCPCS: 82962; 83880; 84439; J0696; J1885; J2405; J3010; J3490; J7030; Q0092

== ENCOUNTER 2017-10-16 17:09 | Inpatient (IN) | payer OTHER, MEDICAID ==
[~2017-10-16] VITALS: Ht 177.8 cm; Wt 77.6 kg
[~2017-10-16 17:09] MED LIST changes: +ALPOS OU; +FINASTERIDE5 M1; +LAC PO; +LEVAQUIN750 MG PO; +ZES5 PO
[2017-10-16 17:15] VITALS: Ht 177.8 cm; Wt 77.6 kg
[2017-10-16 18:05] LABS: BASOPHIL % 0.6 % (0-2); PLATELET COUNT 176 x10^3mcL (130-400); RED CELL DISTRIBUTION WIDTH 15.9 % (11.5-14.5)
[2017-10-16 18:07] LABS: CARBON DIOXIDE 24.2 mmol/L (21-32); CHLORIDE SERUM 108 mmol/L (98-107); CREATININE SERUM 1.2 mg/dL (0.7-1.3); GFR1 > 60 mL/min; GLUCOSE SERUM 181 mg/dL (74-106); POTASSIUM SERUM 3.6 mmol/L (3.5-5.1); SODIUM SERUM 142 mmol/L (136-145)
[2017-10-16 18:13] LABS: ALBUMIN 3.5 g/dL (3.4-5.0); ALKALINE PHOSPHATASE 63 U/L (46-116); ALT/SGPT 21 U/L (16-63); AST/SGOT 16 U/L (15-37); BILIRUBIN TOTAL 0.33 mg/dL (0.20-1.00)
[2017-10-16 19:45] LABS: CHOLESTEROL/HDL RATIO 3.7; MAGNESIUM 2.2 mg/dL (1.8-2.4); PHOSPHOROUS 3.3 mg/dL (2.5-4.9)
[2017-10-16 19:53] VITALS: BP 137/76
[2017-10-16 19:53] LABS: T3 TOTAL 0.86 ng/mL
[2017-10-16 20:14] LABS: FREE T4 0.93 ng/dL (0.76-1.46); FREE THYROXINE INDEX 1.7 ug/dL (1.4-4.5); T4(THYROXINE) 4.9 ug/dL (4.7-13.3)
[2017-10-17 02:10] VITALS: BP 109/65
[2017-10-17 05:15] VITALS: BP 105/57
[2017-10-17 06:02] LABS: microscopic required? NO
[2017-10-17 06:14] LABS: CALCIUM 8.9 mg/dL (8.5-10.1); CARBON DIOXIDE 25.2 mmol/L (21-32); CHLORIDE SERUM 108 mmol/L (98-107); CREATININE SERUM 1.1 mg/dL (0.7-1.3); GFR1 > 60 mL/min; GLUCOSE SERUM 120 mg/dL (74-106); PHOSPHOROUS 3.6 mg/dL (2.5-4.9); POTASSIUM SERUM 3.6 mmol/L (3.5-5.1); SODIUM SERUM 142 mmol/L (136-145)
[2017-10-17 06:25] LABS: BASOPHIL % 0.5 % (0-2); PLATELET COUNT 176 x10^3mcL (130-400)
[2017-10-17 06:33] LABS: RED CELL DISTRIBUTION WIDTH 15.6 % (11.5-14.5)
[2017-10-17 07:09] LABS: UA SPECIFIC GRAVITY 1.025 (1.005-1.035); urine erythrocyte NEGATIVE (NEGATIVE)
[2017-10-17 07:32] LABS: AMPHETAMINE QUAL UR NONE DETECTED (See below)
[2017-10-17 09:19] VITALS: BP 125/69
[2017-10-17 13:40] VITALS: BP 117/65
[2017-10-17 17:41] VITALS: BP 117/68; BP 145/98
[2017-10-17 20:15] VITALS: BP 111/59
[2017-10-18 06:28] VITALS: BP 107/54
[2017-10-18 07:46] LABS: CALCIUM 8.1 mg/dL (8.5-10.1); CARBON DIOXIDE 24.8 mmol/L (21-32); CHLORIDE SERUM 109 mmol/L (98-107); GFR1 > 60 mL/min; GLUCOSE SERUM 135 mg/dL (74-106); MAGNESIUM 1.8 mg/dL (1.8-2.4); PHOSPHOROUS 3.2 mg/dL (2.5-4.9); POTASSIUM SERUM 4.1 mmol/L (3.5-5.1); SODIUM SERUM 141 mmol/L (136-145)
[2017-10-18 08:11] LABS: BASOPHIL % 0.6 % (0-2); PLATELET COUNT 173 x10^3mcL (130-400)
[2017-10-18 08:12] LABS: RED CELL DISTRIBUTION WIDTH 15.1 % (11.5-14.5)
[2017-10-18 08:13] LABS: rbc morphology (normal/abnorm) ABNORMAL (NORMAL)
[2017-10-18 13:41] VITALS: BP 115/62
[2017-10-18] MEDS ORDERED: ELIQUIS5 MG PO (16:17)
[2017-10-18 21:07] VITALS: BP 121/57
[2017-10-19 05:19] VITALS: BP 134/70
[2017-10-19 14:00] VITALS: BP 117/70
[2017-10-19 20:45] VITALS: BP 124/79
[2017-10-20 06:51] VITALS: BP 114/71
[2017-10-20 08:00] VITALS: BP 99/60
[2017-10-20 13:24] VITALS: BP 139/67
[2017-10-20 16:59] VITALS: BP 129/78
[2017-10-20 20:48] VITALS: BP 111/64
[2017-10-21 04:59] VITALS: BP 105/64
== END 2017-10-21 09:14 | disposition left against medical advice (07) | DRG 310 ==
LOC: ED 17:09 → DU 18:30
PROVIDERS: General Practice
DX: R00.1 Bradycardia, unspecified (principal); I44.1 Atrioventricular block, second degree; E11.65 Type 2 diabetes mellitus with hyperglycemia; E78.5 Hyperlipidemia, unspecified; H40.9 Unspecified glaucoma; Z68.29 Body mass index [BMI] 29.0-29.9, adult; Z86.711 Personal history of pulmonary embolism; Z91.19 Patient's noncompliance with other medical treatment and regimen
CPT/HCPCS: 82962; 83880; 84439; J2270; J2405; J7030; Q0092

== ENCOUNTER 2018-01-17 18:21 | Inpatient (IN) | payer MEDICAID, MEDICARE, OTHER ==
[~2018-01-17] VITALS: Ht 177.8 cm; Wt 89.0 kg
[2018-01-17 18:28] VITALS: Ht 177.8 cm; Wt 89.0 kg
[2018-01-17 20:13] LABS: CALCIUM 8.9 mg/dL (8.5-10.1); CARBON DIOXIDE 26.4 mmol/L (21-32); CHLORIDE SERUM 109 mmol/L (98-107); CREATININE SERUM 1.1 mg/dL (0.7-1.3); GFR1 > 60 mL/min; GLUCOSE SERUM 96 mg/dL (74-106); POTASSIUM SERUM 4.1 mmol/L (3.5-5.1); SODIUM SERUM 141 mmol/L (136-145)
[2018-01-17 20:14] LABS: BASOPHIL % 0.5 % (0-2); PLATELET COUNT 165 x10^3mcL (130-400); RED CELL DISTRIBUTION WIDTH 17.4 % (11.5-14.5)
[2018-01-17 20:19] LABS: ALBUMIN 3.6 g/dL (3.4-5.0); ALKALINE PHOSPHATASE 66 U/L (46-116); ALT/SGPT 7 U/L (16-63); AST/SGOT 13 U/L (15-37); BILIRUBIN TOTAL 0.47 mg/dL (0.20-1.00); TOTAL PROTEIN, SERUM 7.3 g/dL (6.4-8.2)
[2018-01-17] MEDS ORDERED: LIPI10 PO (20:47)
[2018-01-17] MEDS ORDERED: FLO4 PO (20:47)
[2018-01-17] MEDS ORDERED: METFORMIN HYDR500 M1 PO (20:47)
[2018-01-17 22:06] LABS: T3 TOTAL 0.9 ng/mL
[2018-01-17 22:12] LABS: FREE T4 0.95 ng/dL (0.76-1.46); FREE THYROXINE INDEX 2.5 ug/dL (1.4-4.5); T4(THYROXINE) 6.8 ug/dL (4.7-13.3)
[2018-01-17 22:20] VITALS: BP 116/71
[2018-01-17 22:33] LABS: MAGNESIUM 2.1 mg/dL (1.8-2.4); PHOSPHOROUS 3.4 mg/dL (2.5-4.9)
[2018-01-18 05:20] VITALS: BP 113/62
[2018-01-18 07:46] VITALS: BP 120/64
[2018-01-18 11:59] VITALS: BP 120/64
[2018-01-18 13:00] VITALS: BP 117/62
[2018-01-18 16:36] VITALS: BP 114/64
[2018-01-18 20:53] VITALS: BP 119/65
[2018-01-19 03:35] LABS: microscopic required? NO
[2018-01-19 04:17] LABS: AMPHETAMINE QUAL UR NONE DETECTED (See below)
[2018-01-19 04:32] LABS: urine erythrocyte NEGATIVE (NEGATIVE)
[2018-01-19 05:55] VITALS: BP 106/65
[2018-01-19 09:15] VITALS: BP 117/60
[2018-01-19 13:45] VITALS: BP 124/69
[2018-01-19 17:16] VITALS: BP 107/63
[2018-01-19 20:02] VITALS: BP 121/64
[2018-01-20 05:28] VITALS: BP 119/67
[2018-01-20 08:49] VITALS: BP 99/56
[2018-01-20 16:37] VITALS: BP 112/69
[2018-01-20 20:27] VITALS: BP 118/63
[2018-01-21 05:58] VITALS: BP 101/62
[2018-01-21 07:46] VITALS: BP 117/60
[2018-01-21 11:59] VITALS: BP 110/63
[2018-01-21 18:35] VITALS: BP 101/61
[2018-01-21 20:41] VITALS: BP 104/63
[2018-01-22 05:47] VITALS: BP 105/60
[2018-01-22 08:51] VITALS: BP 105/60
== END 2018-01-22 11:49 | disposition home or self-care (01) | DRG 203 ==
LOC: ED 18:21 → DU 20:38 → MU 01-20 15:10
PROVIDERS: Internal Medicine
DX: M94.0 Chondrocostal junction syndrome [Tietze] (principal); D68.69 Other thrombophilia; E11.65 Type 2 diabetes mellitus with hyperglycemia; E78.1 Pure hyperglyceridemia; H40.9 Unspecified glaucoma; N40.0 Benign prostatic hyperplasia without lower urinary tract symptoms; Z68.30 Body mass index [BMI] 30.0-30.9, adult; Z95.0 Presence of cardiac pacemaker; Z86.711 Personal history of pulmonary embolism; Z79.01 Long term (current) use of anticoagulants; Z91.14 Patient's other noncompliance with medication regimen; Z53.29 Procedure and treatment not carried out because of patient's decision for other reasons
CPT/HCPCS: 82962; 83880; 84439; 90658; J2270; J7030; Q0092

== ENCOUNTER 2018-04-28 14:32 | Inpatient (IN) | payer OTHER, MEDICAID ==
[~2018-04-28] VITALS: Ht 172.7 cm; Wt 88.5 kg
[~2018-04-28 14:32] MED LIST changes: +LIPI10 PO; +METFORMIN HYDR500 M1 PO
[2018-04-28 14:35] VITALS: Ht 172.7 cm; Wt 88.5 kg
[2018-04-28 15:21] LABS: BASOPHIL % 0.6 % (0-2); CALCIUM 9.2 mg/dL (8.5-10.1); CARBON DIOXIDE 23.8 mmol/L (21-32); CHLORIDE SERUM 105 mmol/L (98-107); CREATININE SERUM 1.2 mg/dL (0.7-1.3); GFR1 > 60 mL/min; GLUCOSE SERUM 139 mg/dL (74-106); PLATELET COUNT 169 x10^3mcL (130-400); POTASSIUM SERUM 4.1 mmol/L (3.5-5.1); SODIUM SERUM 136 mmol/L (136-145)
[2018-04-28 15:25] LABS: RED CELL DISTRIBUTION WIDTH 17.9 % (11.5-14.5)
[2018-04-28 15:26] LABS: ALBUMIN 3.6 g/dL (3.4-5.0); ALKALINE PHOSPHATASE 83 U/L (46-116); ALT/SGPT 23 U/L (16-63); AST/SGOT 13 U/L (15-37); BILIRUBIN TOTAL 0.2 mg/dL (0.20-1.00); TOTAL PROTEIN, SERUM 7.6 g/dL (6.4-8.2)
[2018-04-28] MEDS ORDERED: COSOPT OCUMETER10 ML OP (16:02)
[2018-04-28] MEDS ORDERED: TRAVATAN Z5 ML OU (16:03)
[2018-04-28 17:34] LABS: CHOLESTEROL/HDL RATIO 3.8; MAGNESIUM 2.1 mg/dL (1.8-2.4); PHOSPHOROUS 3.1 mg/dL (2.5-4.9)
[2018-04-28 19:05] LABS: UA SPECIFIC GRAVITY 1.025 (1.005-1.035); microscopic required? YES; urine erythrocyte 1+ (NEGATIVE)
[2018-04-28 19:21] LABS: AMPHETAMINE QUAL UR NONE DETECTED (See below)
[2018-04-28 20:09] VITALS: BP 127/78
[2018-04-29 05:58] VITALS: BP 106/65
[2018-04-29 06:22] LABS: BASOPHIL % 0.6 % (0-2); PLATELET COUNT 152 x10^3mcL (130-400)
[2018-04-29 06:28] LABS: CALCIUM 8.6 mg/dL (8.5-10.1); CHLORIDE SERUM 107 mmol/L (98-107); CREATININE SERUM 1.2 mg/dL (0.7-1.3); GFR1 > 60 mL/min; GLUCOSE SERUM 121 mg/dL (74-106); MAGNESIUM 2.2 mg/dL (1.8-2.4); PHOSPHOROUS 3.3 mg/dL (2.5-4.9); POTASSIUM SERUM 3.9 mmol/L (3.5-5.1); SODIUM SERUM 142 mmol/L (136-145)
[2018-04-29 07:12] LABS: RED CELL DISTRIBUTION WIDTH 17.7 % (11.5-14.5)
[2018-04-29 10:23] VITALS: BP 106/69
[2018-04-29 17:00] VITALS: BP 103/67
[2018-04-29 20:00] VITALS: BP 102/60
[2018-04-30 05:57] VITALS: BP 121/67
[2018-04-30 06:44] LABS: CALCIUM 8.5 mg/dL (8.5-10.1); CARBON DIOXIDE 24.6 mmol/L (21-32); CREATININE SERUM 1.3 mg/dL (0.7-1.3); MAGNESIUM 2.2 mg/dL (1.8-2.4); PHOSPHOROUS 3.2 mg/dL (2.5-4.9); POTASSIUM SERUM 4.3 mmol/L (3.5-5.1)
[2018-04-30 08:04] LABS: BASOPHIL % 0.5 % (0-2); PLATELET COUNT 150 x10^3mcL (130-400)
[2018-04-30 08:05] LABS: RED CELL DISTRIBUTION WIDTH 17.7 % (11.5-14.5)
[2018-04-30] MEDS ORDERED: RAN500A PO (14:51)
[2018-04-30] MEDS ORDERED: NOR5 PO (14:51)
[2018-04-30 15:37] VITALS: BP 121/67
[2018-04-30 17:33] VITALS: BP 115/62
[2018-04-30 19:40] VITALS: BP 109/61
[2018-05-01 05:39] VITALS: BP 120/61
[2018-05-01 06:45] VITALS: BP 120/61
== END 2018-05-01 06:58 | disposition left against medical advice (07) | DRG 206 ==
LOC: ED 14:32 → DU 16:54
PROVIDERS: Emergency Medicine; ADMIT Internal Medicine
DX: M94.0 Chondrocostal junction syndrome [Tietze] (principal); D68.69 Other thrombophilia; E11.65 Type 2 diabetes mellitus with hyperglycemia; I10 Essential (primary) hypertension; N40.0 Benign prostatic hyperplasia without lower urinary tract symptoms; H40.9 Unspecified glaucoma; Z68.30 Body mass index [BMI] 30.0-30.9, adult; Z95.0 Presence of cardiac pacemaker; Z86.711 Personal history of pulmonary embolism; Z79.01 Long term (current) use of anticoagulants; Z79.84 Long term (current) use of oral hypoglycemic drugs
CPT/HCPCS: 83880; 85378; A9500; J1885; J2785

== ENCOUNTER 2018-08-29 14:55 | Inpatient (IN) | payer MEDICAID, MEDICARE, OTHER ==
[~2018-08-29] VITALS: Ht 172.7 cm; Wt 93.5 kg
[~2018-08-29 14:55] MED LIST changes: +COSOPT OCUMETER10 ML OP; -LIPI20 PO; -METFORMIN HYDR500 M1 PO; +NOR5 PO; +RAN500A PO
[2018-08-29 14:59] VITALS: Ht 172.7 cm; Wt 93.5 kg
[2018-08-29 16:58] LABS: BASOPHIL % 0.3 % (0-2); PLATELET COUNT 146 x10^3mcL (130-400)
[2018-08-29 17:00] LABS: RED CELL DISTRIBUTION WIDTH 16.1 % (11.5-14.5)
[2018-08-29 17:10] LABS: CALCIUM 8.7 mg/dL (8.5-10.1); CHLORIDE SERUM 102 mmol/L (98-107); CREATININE SERUM 1.1 mg/dL (0.7-1.3); GFR1 > 60 mL/min; GLUCOSE SERUM 153 mg/dL (74-106); SODIUM SERUM 137 mmol/L (136-145)
[2018-08-29 17:14] LABS: ALKALINE PHOSPHATASE 68 U/L (46-116); ALT/SGPT 17 U/L (16-63); AST/SGOT 14 U/L (15-37); BILIRUBIN TOTAL 0.3 mg/dL (0.20-1.00); TOTAL PROTEIN, SERUM 6.9 g/dL (6.4-8.2)
[2018-08-29 17:15] LABS: ALBUMIN 3.2 g/dL (3.4-5.0)
[2018-08-29] MEDS ORDERED: METFORMIN HCL500 MG PO (17:40)
[2018-08-29] MEDS ORDERED: ELIQUIS5 MG PO (17:41)
[2018-08-29] MEDS ORDERED: LIPI10 PO (17:41)
[2018-08-29 18:18] LABS: FREE T4 0.94 ng/dL (0.76-1.46); FREE THYROXINE INDEX 2.8 ug/dL (1.4-4.5); T3 TOTAL 0.9 ng/mL; T4(THYROXINE) 7.3 ug/dL (4.7-13.3)
[2018-08-29 18:19] VITALS: BP 130/63
[2018-08-29 18:30] LABS: microscopic required? YES; urine erythrocyte NEGATIVE (NEGATIVE)
[2018-08-29 18:31] LABS: CHOLESTEROL/HDL RATIO 5.7; PHOSPHOROUS 2.9 mg/dL (2.5-4.9)
[2018-08-29 18:38] LABS: AMPHETAMINE QUAL UR NONE DETECTED (See below)
[2018-08-29 21:00] VITALS: BP 132/76
[2018-08-30 05:49] VITALS: BP 130/60
[2018-08-30 07:52] VITALS: BP 115/70
[2018-08-30 08:52] LABS: BASOPHIL % 0.3 % (0-2); PLATELET COUNT 140 x10^3mcL (130-400); RED CELL DISTRIBUTION WIDTH 16.3 % (11.5-14.5)
[2018-08-30 09:09] LABS: CALCIUM 8.8 mg/dL (8.5-10.1); CARBON DIOXIDE 28.3 mmol/L (21-32); CHLORIDE SERUM 104 mmol/L (98-107); CREATININE SERUM 1.1 mg/dL (0.7-1.3); GFR1 > 60 mL/min; GLUCOSE SERUM 108 mg/dL (74-106); MAGNESIUM 2.2 mg/dL (1.8-2.4); PHOSPHOROUS 3.2 mg/dL (2.5-4.9); POTASSIUM SERUM 3.7 mmol/L (3.5-5.1); SODIUM SERUM 140 mmol/L (136-145)
[2018-08-30 12:57] VITALS: BP 107/63
[2018-08-30 16:00] VITALS: BP 121/63
[2018-08-30 21:38] VITALS: BP 115/69
[2018-08-31 06:31] LABS: BASOPHIL % 0.3 % (0-2); PLATELET COUNT 133 x10^3mcL (130-400)
[2018-08-31 06:38] LABS: RED CELL DISTRIBUTION WIDTH 16.1 % (11.5-14.5)
[2018-08-31 06:54] VITALS: BP 112/68
[2018-08-31 07:16] LABS: CALCIUM 9.5 mg/dL (8.5-10.1); CARBON DIOXIDE 22.2 mmol/L (21-32); CHLORIDE SERUM 104 mmol/L (98-107); CREATININE SERUM 1.1 mg/dL (0.7-1.3); GFR1 > 60 mL/min; GLUCOSE SERUM 111 mg/dL (74-106); PHOSPHOROUS 3.3 mg/dL (2.5-4.9); POTASSIUM SERUM 3.9 mmol/L (3.5-5.1); SODIUM SERUM 138 mmol/L (136-145)
[2018-08-31 09:28] VITALS: BP 134/68
[2018-08-31] MEDS ORDERED: METFORMIN HYDR500 M1 PO (13:04)
[2018-08-31 13:05] VITALS: BP 134/68
[2018-08-31] MEDS ORDERED: LIPI20 PO (13:05)
== END 2018-08-31 14:45 | disposition home or self-care (01) | DRG 203 ==
LOC: ED 14:55 → DU 17:45 → MU 17:45 → DU 18:14 → MU 08-30 17:26
PROVIDERS: Emergency Medicine; ADMIT Internal Medicine
DX: R07.89 Other chest pain (principal); D68.69 Other thrombophilia; E11.65 Type 2 diabetes mellitus with hyperglycemia; I10 Essential (primary) hypertension; E78.5 Hyperlipidemia, unspecified; N40.0 Benign prostatic hyperplasia without lower urinary tract symptoms; Z68.31 Body mass index [BMI] 31.0-31.9, adult; Z95.0 Presence of cardiac pacemaker; Z86.711 Personal history of pulmonary embolism; Z79.84 Long term (current) use of oral hypoglycemic drugs
CPT/HCPCS: 82962; 83880; 84439; J2270; J2405; Q0092

== ENCOUNTER 2018-10-08 18:11 | Emergency (ER) | payer OTHER, MEDICAID ==
[~2018-10-08] VITALS: Ht 172.7 cm; Wt 91.6 kg
[~2018-10-08 18:11] MED LIST changes: +LIPI20 PO; +METFORMIN HCL500 MG PO; +METFORMIN HYDR500 M1 PO
[2018-10-08 18:26] VITALS: Ht 172.7 cm; Wt 91.6 kg
[2018-10-08 19:08] LABS: BASOPHIL % 0.5 % (0-2); PLATELET COUNT 160 x10^3mcL (130-400)
[2018-10-08 19:09] LABS: RED CELL DISTRIBUTION WIDTH 15.8 % (11.5-14.5)
[2018-10-08 19:17] LABS: CALCIUM 9.6 mg/dL (8.5-10.1); CARBON DIOXIDE 22.2 mmol/L (21-32); CHLORIDE SERUM 107 mmol/L (98-107); CREATININE SERUM 1.1 mg/dL (0.7-1.3); GFR1 > 60 mL/min; GLUCOSE SERUM 103 mg/dL (74-106); POTASSIUM SERUM 4.1 mmol/L (3.5-5.1); SODIUM SERUM 139 mmol/L (136-145)
[2018-10-08 19:22] LABS: ALBUMIN 3.5 g/dL (3.4-5.0); ALKALINE PHOSPHATASE 76 U/L (46-116); AST/SGOT 8 U/L (15-37); BILIRUBIN TOTAL 0.23 mg/dL (0.20-1.00); TOTAL PROTEIN, SERUM 7.1 g/dL (6.4-8.2)
[2018-10-08 19:31] LABS: ALT/SGPT 16 U/L (16-63)
[2018-10-08 20:16] VITALS: BP 125/97
== END 2018-10-08 20:16 | disposition home or self-care (01) ==
LOC: ED 18:11
PROVIDERS: Emergency Medicine
DX: R07.89 Other chest pain (principal); G89.29 Other chronic pain; R51 Headache; I10 Essential (primary) hypertension; E11.9 Type 2 diabetes mellitus without complications; E78.00 Pure hypercholesterolemia, unspecified; Z95.0 Presence of cardiac pacemaker; Z88.8 Allergy status to other drugs, medicaments and biological substances; Z91.013 Allergy to seafood; Z88.5 Allergy status to narcotic agent
CPT/HCPCS: 36415; 83880; 85378; Q0092

== ENCOUNTER 2020-05-18 15:38 | Emergency (ER) | payer OTHER, MEDICAID ==
[~2020-05-18] VITALS: Ht 172.7 cm; Wt 88.9 kg
[~2020-05-18 15:38] MED LIST changes: +COSOPT; +FLOMAX0.4 MG; +FORTAMET500 M1 PO; +LIPITOR40 MG; +METFORMIN HCL1000 M2 PO; +PROSCAR5 MG; +TRAVATAN Z5 ML
[2020-05-18 15:40] VITALS: BP 152/76; Ht 172.7 cm; Wt 88.9 kg
[2020-05-18 16:22] LABS: BASOPHIL % 0.5 % (0.2-1.5); PLATELET COUNT 184 x10^3mcL (152-348)
[2020-05-18 16:31] LABS: RED CELL DISTRIBUTION WIDTH 19.2 % (12.1-16.2)
[2020-05-18 16:45] LABS: CALCIUM 9.5 mg/dL (8.5-10.1); CHLORIDE SERUM 107 mmol/L (98-107); CREATININE SERUM 1.1 mg/dL (0.7-1.3); GFR1 > 60 mL/min; GLUCOSE SERUM 135 mg/dL (74-106); SODIUM SERUM 141 mmol/L (136-145)
[2020-05-18 16:50] LABS: ALBUMIN 3.6 g/dL (3.4-5.0); ALKALINE PHOSPHATASE 98 U/L (46-116); ALT/SGPT 21 U/L (16-63); AST/SGOT 8 U/L (15-37); BILIRUBIN TOTAL 0.27 mg/dL (0.20-1.00); TOTAL PROTEIN, SERUM 7.4 g/dL (6.4-8.2)
[2020-05-18 17:37] LABS: rbc morphology (normal/abnorm) ABNORMAL (NORMAL)
== END 2020-05-18 18:12 | disposition left against medical advice (07) ==
LOC: ED 15:38
PROVIDERS: Student in an Organized Health Care Education/Training Program
DX: R07.89 Other chest pain (principal); I10 Essential (primary) hypertension; E11.9 Type 2 diabetes mellitus without complications; E78.00 Pure hypercholesterolemia, unspecified; Z95.0 Presence of cardiac pacemaker; Z88.8 Allergy status to other drugs, medicaments and biological substances; Z98.890 Other specified postprocedural states; Z91.013 Allergy to seafood